=== PATIENT | female | born 1955 | race Caucasian/White ===

== ENCOUNTER 2016-09-06 07:06 | Inpatient (IN) ==
--- NOTE | 2016-09-03 14:57 | Discharge Summary ---
<Varsha Lantigua E - Last Filed: 09/03/16 14:55> Date of Encounter: 09/03/16 - Discharge Diagnosis (1) Rotator cuff arthropathy Priority: Primary Status: Chronic Qualifiers: Laterality: left Qualified Code(s): M12.812 - Other specific arthropathies , not elsewhere classified, left shoulder (2) Chronic pain Priority: Secondary Status: Chronic Qualifiers: Chronic pain type: other chronic pain Qualified Code(s): G89.29 - Other chronic pain (3) Hypertension Status: Chronic Qualifiers: Hypertension type: essential hypertension Qualified Code(s): I10 - Essential (primary) hypertension (4) Tobacco dependence Priority: Secondary Status: Acute - Discharge Medications Home Medications: Albuterol Sulfate [Proair Hfa] 2 puff IH Q4H PRN 01/02/16 [History] Amlodipine Besylate 10 mg PO DAILY 01/02/16 [History] BuPROPion SR (12 HR) [Wellbutrin SR] 150 mg PO BID 01/02/16 [History] OxyCODONE/APAP 5/325 [Percocet 5/325 MG] 1 each PO Q8HR PRN 01/02/16 [History] Pravastatin Sodium [Pravachol] 20 mg PO DAILY 01/02/16 [History] Valsartan [Diovan] 160 mg PO DAILY 01/02/16 [History] Aspirin Enteric Coated [Aspirin EC] 325 mg PO DAILY #21 tablet. 09/05/16 [Rx] OxyCODONE Immed Rel [Roxicodone 5 MG] 5 - 10 mg PO DAILY #14 tablet 09/05/16 [Rx ] Albuterol Sulfate [Albuterol Inhaler] 2 puff IH Q4HR PRN 09/06/16 [History] Amlodipine Besylate 10 mg PO DAILY 09/06/16 [History] Baclofen [Lioresal] 10 mg PO TID 09/06/16 [History] Duloxetine [Cymbalta] 40 mg PO BID 09/06/16 [History] Loratadine [Allergy Relief] 10 mg PO DAILY 09/06/16 [History] Allergies/Adverse Reactions: Allergies oxytocin [From Pitocin] Allergy (Verified 09/06/16 08:34) Swelling of Lip/Tongue/Throat sulfamethoxazole [From Septra] Allergy (Verified 09/06/16 08:34) Rash trimethoprim [From Septra] Allergy (Verified 09/06/16 08:34) Rash Primary care physician: Emeka Brandon CNP - Patient Status Disposition: Home, Self-Care Condition: Good - Discharge Instructions Follow Up With: Emeka Brandon CNP [Primary Care Provider] - - Hospital Course Hospital course: Ms. Nahid Cox is a 60 year old female - Time Spent with Patient Total time spent providing and/or coordinating discharge services: <Anali Parmar - Last Filed: 09/05/16 21:36> Date of Encounter: 09/05/16 - Discharge Diagnosis (1) Rotator cuff arthropathy Status: Chronic Comments: Percocet 5/325 TID - #90 -LD 08/16/16 - Resuming her chronic pain medication at discharge, and start Oxycodone 5mg TID in addition to her normal routine. This will be continued for 1 week post-op, then tapered down to her normal dosage. Qualifiers: Laterality: left Qualified Code(s): M12.812 - Other specific arthropathies , not elsewhere classified, left shoulder (2) Chronic pain Status: Chronic Qualifiers: Chronic pain type: other chronic pain Qualified Code(s): G89.29 - Other chronic pain (3) Hypertension Status: Chronic Qualifiers: Hypertension type: essential hypertension Qualified Code(s): I10 - Essential (primary) hypertension (4) Tobacco dependence Status: Acute Primary care physician: Emeka Brandon CNP - Hospital Course Hospital course: Ms. Nahid Cox is a 60 year old female - Time Spent with Patient Total time spent providing and/or coordinating discharge services: <Nathaniel Mallory - Last Filed: 09/07/16 06:46> Date of Encounter: 09/07/16 Time of Encounter: 06:46 - Discharge Diagnosis (1) Chronic pain Priority: Secondary Status: Chronic Qualifiers: Chronic pain type: other chronic pain Qualified Code(s): G89.29 - Other chronic pain (2) Hypertension Priority: Secondary Status: Chronic Qualifiers: Hypertension type: essential hypertension Qualified Code(s): I10 - Essential (primary) hypertension (3) Tobacco dependence Priority: Secondary Status: Acute (4) Rotator cuff arthropathy Priority: Primary Status: Chronic Qualifiers: Laterality: left Qualified Code(s): M12.812 - Other specific arthropathies , not elsewhere classified, left shoulder Primary care physician: Emeka Brandon CNP - Patient Status Functional capacity at discharge: independent ambulation Overall status at discharge: patient is back to baseline - Hospital Course Hospital course: Ms. Nahid Cox is a 60 year old female The patient had an uneventful postoperative course. They received antibiotics and physical therapy and were discharged in stable condition. There will follow -up in the office in 2 weeks. Time spent discussing smoking cessation with patient: 3 to 10 minutes - Time Spent with Patient Total time spent providing and/or coordinating discharge services:
--- NOTE | 2016-09-06 07:37 | History & Physical Report ---
Date of Encounter: 09/06/16 Time of Encounter: 07:37 24 Hour HP Update - Instructions Instructions: If the History and Physical is less than 30 days old and was completed prior to A.M. admission and or procedure and has NOT been updated on calendar day of procedure please complete this update prior to performing procedure. - Update Patient reports changes in Medical Condition: No Changes in examination, assessment, or condition: No Changes in Medication: No Preop tests/diagnostics Reviewed: Yes Surgery Remains Indicated: Yes Consent for Planned Operative Procedure(s) Verified: Yes - Pre-Operative Checklist Preoperative Checklist Indicated: No Prophylactic Antibiotic Ordered: Yes Is VTE Prophylaxis Indicated?: Yes
[2016-09-06] MEDS ORDERED: Albuterol 2.5 MG/3 ML NEBULIZER ONE (07:41)
[2016-09-06] MEDS ORDERED: Albuterol 2.5 MG/3 ML NEBULIZER IH ONE (07:45)
[2016-09-06] MEDS ORDERED: CeFAZolin Pre 2,000 MG/100 ML 2,000 MG/100 ML BAG IVPB ONE (07:45)
[2016-09-06] MEDS ORDERED: Ringers Solution, Lactated 1,000 ML IVC SCH ×3 (07:45→10:47)
[2016-09-06] MEDS ORDERED: Famotidine 20 MG/2 ML VIAL IVP ONE (08:00)
--- NOTE | 2016-09-06 08:03 | Anesthesia Evaluation PreOp ---
Date of Encounter: 09/06/16 Time of Encounter: 08:00 - Past History Planned Operation: Left Total Shoulder Replacement Cardiac History: HTN, Hyperlipidemia Pulmonary History: Smoker, COPD GUEST ATTENDANT History: Denies Any Significant HX Other Medical History: Denies Any Significant HX Anesthesia History: No Prior Anesthetic Complications : No Alcohol Use: none Drug use: none Medications and Allergies Albuterol Sulfate [Proair Hfa] 2 puff IH Q4H PRN 01/02/16 [History] Amlodipine Besylate 10 mg PO DAILY 01/02/16 [History] Biotin 5 mg PO DAILY 01/02/16 [History] BuPROPion SR (12 HR) [Wellbutrin SR] 150 mg PO BID 01/02/16 [History] Celecoxib [Celebrex] 200 mg PO BID 01/02/16 [History] Duloxetine HCl [Cymbalta] 60 mg PO BID 01/02/16 [History] Estradiol/Norethindrone Acet [Activella 0.5-0.1 mg Tablet] 1 tab PO DAILY [History] Multivitamin [One Daily Essential] 1 tab PO DAILY 01/02/16 [History] OxyCODONE/APAP 5/325 [Percocet 5/325 MG] 1 each PO Q8HR PRN 01/02/16 [History] Oxybutynin Chloride [Ditropan Xl] 5 mg PO BID 01/02/16 [History] Pravastatin Sodium [Pravachol] 20 mg PO DAILY 01/02/16 [History] Tizanidine HCl 4 mg PO Q8H PRN 01/02/16 [History] Valsartan [Diovan] 160 mg PO DAILY 01/02/16 [History] Aspirin Enteric Coated [Aspirin EC] 325 mg PO DAILY #21 tablet. 09/05/16 [Rx] OxyCODONE Immed Rel [Roxicodone 5 MG] 5 - 10 mg PO DAILY #14 tablet 09/05/16 [Rx ] Allergies oxytocin [From Pitocin] Allergy (Verified 01/02/16 09:12) Swelling of Lip/Tongue/Throat sulfamethoxazole [From Septra] Allergy (Verified 01/02/16 09:12) Rash trimethoprim [From Septra] Allergy (Verified 01/02/16 09:12) Rash - Meds/Allergy Pre-op Review Medications Reviewed: Yes Allergies Reviewed: Yes Beta Blockers on Current Med List: No Anesthesia Results - Labs Laboratory Tests 08/26/16 08/26/16 15:05 15:05 Hgb 12.3 Hct 37.7 Plt Count 477 H Sodium 140 Potassium 3.6 BUN 13 Creatinine 0.72 - Imaging EKG: report reviewed (SR) Anesthesia Exam O2 Sat Height 1.6 m Height 1.6 m Weight 73.936 kg Weight 73.936 kg O2 Sat by Pulse Oximetry 93 Vital Signs Temp Pulse Resp BP Pulse Ox 98.6 F 85 18 132/88 93 09/06/16 07:39 09/06/16 07:39 09/06/16 07:39 09/06/16 07:39 09/06/16 07:39 Height: 5'3 Weight: 163 lbs NPO (# of Hours): MN Pain Scale: 0 - HEENT Pupil (Motor): Pupils equal, EOMI Mallampati: II Denture Type: Upper: Complete Oral Opening: Greater than 3 - GUEST ATTENDANT LOC: Oriented GUEST ATTENDANT Motor: Normal RUE, Normal LUE, Normal RLE, Normal LLE, Normal Face GUEST ATTENDANT Sensory: Normal: RUE, LUE, RLE, LLE, Face - Cardiac Rhythm: Regular Murmur: None JVD: No Carotid Bruit: No - Pulmonary Breath Sounds: bilateral Clear Respiratory Effort: Symmetrical Anesthesia Assess/Plan ASA Score: 3 (HTN COPD Tobacco) Modified Wisam Scale for Level of Consciousness: Cooperative, oriented, and tranquil Anesthetic Plan: General, Regional Monitoring Plan: Standard Monitors Recovery Plan: PACU (Discussed GA and RA, agrees to proceed)
[2016-09-06] MEDS ORDERED: Dexamethasone 4 MG/ML VIAL ONE (08:27)
[2016-09-06] MEDS ORDERED: Ondansetron 4 MG/2 ML VIAL ONE (08:27)
[2016-09-06] MEDS ORDERED: *HR* FentaNYL (PF) 100 MCG/2 ML VIAL ONE (08:27)
[2016-09-06] MEDS ORDERED: Lidocaine -MPF 2% 2 ML VIAL ONE (08:27)
[2016-09-06] MEDS ORDERED: *HR* Midazolam HCl 2 MG/2 ML VIAL ONE ×2 (08:27→08:28)
[2016-09-06] MEDS ORDERED: *HR* Propofol 200 MG/20 ML VIAL IVP ONE (08:29)
[2016-09-06] MEDS ORDERED: Tetracaine/PF 20 MG/2 ML AMPUL SPINA ONE (08:46)
[2016-09-06] MEDS ORDERED: ROPIVACAINE HCL/PF 0.5% 30 ML VIAL ONE (08:46)
[2016-09-06] MEDS ORDERED: Bupivacaine/Clonidine Syringe 1 EACH SYRINGE ONE (08:47)
[2016-09-06] MEDS ORDERED: Lidocaine -MPF 4% 5 ML AMPUL ONE (09:05)
--- NOTE | 2016-09-06 09:08 | Anesthesia Procedures ---
Date of Encounter: 09/06/16 Time of Encounter: 08:50 Procedures: Anesthesia - Nerve Block Procedure Date: 09/06/16 Time: 08:50 Allergies/Adv Reactions: oxytocin, sulfamethoxazole, trimethoprim Pre-op Diagnosis: Left Shoulder rotator cuff arthropathy Surgical Procedure: Left total shoulder arthroplasty Checklist: Correct Patient Identifier, Correct procedure, History checked Correct side: Left Blood Thinner: No Monitor Applied: EKG, BP, Pulse Oximetry Supplemental Oxygen via Nasal Cannula (L/min): 2 Sedation: Versed (mg): 2 Sedation: Fentanyl (mcg): 50 Indication: Post Op Analgesia Pre-op Neuro Deficits: No Block Type: Supraclavicular Catheter placed: No Sterile Technique: Yes Ultrasound used: Yes Anatomy identified: Yes Visual spread of Local: Yes Neuro Stimulation: No Blood on Needle Aspiration: No Smooth Injection of Local: Yes Pain with Injection of Local: No Prep: Chlorhexadine Needle: 22 x 50 mm Stimuplex Local: 0.25% Bupivicaine w/Clonidine 20 mcg/cc, Ropivacaine Volume (cc): 40 Number of Attempts: 1 Complications: None/effective block Vitals: Vital Signs Temperature 98.6 F 09/06/16 07:39 Pulse Rate 85 09/06/16 07:39 Respiratory Rate 18 09/06/16 07:39 Blood Pressure 132/88 09/06/16 07:39 O2 Sat by Pulse Oximetry 93 09/06/16 07:39 Temperature 98.6 F 09/06/16 07:39 Pulse Rate 88 09/06/16 09:05 Respiratory Rate 16 09/06/16 09:05 Blood Pressure 156/88 09/06/16 09:05 O2 Sat by Pulse Oximetry 97 09/06/16 09:05 Comments: ropivicaine 0.5% 30ml supraclavicular, bupivicaine 0.25% with clonidine for SCP , ICB
[2016-09-06] MEDS ORDERED: Ondansetron 4 MG/2 ML VIAL IVP ONE (09:10)
[2016-09-06] MEDS ORDERED: *HR* Morphine 2 MG/ML SYRINGE IVP PRN (09:10)
--- NOTE | 2016-09-06 09:57 | Orthopedic Operative Note ---
Date of procedure: 09/06/16 Pre-op diagnosis: Left shoulder cuff tear arthropathy Post-op diagnosis: same Procedure: Procedure: Left Total Shoulder Replacment Reverse, Estimated blood loss: 100 cc Hardware:Arthrex small glenoid baseplate, 2 4.5 screws. 1 6.5 screw, 36 lateral glenosphere, 6 humeral stem, poly insert 3 and 6 metal Exam Under anesthesia: Full motion and no stability Procedural Notes: Extensive fibrinous material irreparable tear supraspinatus and subscapularis, grade 3 arthritic changes humeral head Operative procedure: The patient was brought to the operating room and placed on the operating room table. After general anesthesia was administered the operative shoulder was examined. Findings were noted. The patient was placed in the modified beachchair position. All pressure points were padded appropriately. And the head was stabilized in the neutral position. The operative extremity was prepped and draped in the sterile surgical fashion. The patient received IV antibiotics prior to skin incision. A standard deltopectoral approach was made to the operative shoulder. Incision was made to the skin and subcutaneous tissue,hemo stasis was obtained with Bovie cautery. Using careful blunt dissection the cephalic vein was identified and mobilized medially. The deltopectoral interval was developed and the clavipectoral fascia was incised. Patient noted to have extensive fibrinous material. Cultures and Gram stain were obtained and sent. Very low suspicion of infection. The subscap was irreparable. The humerus was dislocated patient noted to have irreparable tear supraspinatus tendon and grade 3 arthritic changes humeral head., and the humeral cut was made along the anatomic neck. Anterior and posterior Bankart retractors were placed to expose the glenoid. The glenoid guide was seated and the centering hole was made. It was reamed with the appropriate reamer. The small baseplate was seated and secured with ( 2) 4.5 screws and one 6.5 screw. The baseplate was irrigated and dried and the 36 lateral Glenosphere was seated and secured with the Carlton taper. The Carlton taper was tested and found to be secure the humerus was redislocated and prepared with the diaphyseal reamers, followed by a broaching process up to the appropriate size 6 in the patient's anatomic version. The metaphyseal reamer was then utilized. Trial reduction found the shoulder to be relocatable. Trial components were removed and the size 6 stem was impacted in place in the patient's anatomic version. Trial reduction found the shoulder to be relocatable and stable with the appropriate 6 metal and 3 Marilu Trial component was removed and the real implants was seated and secured the shoulder was reduced. The shoulder had excellent motion and excellent stability and no evidence of dislocation. The deep tissue was irrigated with pulse irrigation. The deltopectoral interval was closed with a running #1 PDS suture, subcutaneous tissue was irrigated and closed with 0 PDS suture, the skin was closed with Dermabond. The patient was placed in a sterile dressing, abduction brace and extubated. The patient was then transferred to the recovery room in stable condition. Anesthesia: [place] Surgeon: Nathaniel Mallory Informatics Application Analyst: Anali Parmar Condition: stable Disposition: PACU
--- NOTE | 2016-09-06 10:45 | Anesthesia Evaluation Post Op ---
Date of Encounter: 09/06/16 Time of Encounter: 10:40 - Vital Signs Vital Signs: Vital Signs/O2 Sat/Glucose, Most Current Temp Pulse Resp BP Pulse Ox 09/06/16 10:35 83 17 147/83 95 09/06/16 10:25 86 16 140/88 98 09/06/16 10:15 97.1 F L 92 15 165/83 95 09/06/16 09:05 88 16 156/88 97 09/06/16 08:44 84 16 148/87 94 09/06/16 07:39 98.6 F 85 18 132/88 93 - Lungs Lungs: Clear Ascult./Percussion - Airway Airway: Non-obstructed - Cardiovascular Regular Rate - Mental Status Mental Status: Alert & Oriented, Answers Appropriately - Pain Pain Scale: 0 - Nausea Vomiting Nausea Vomiting: Not Present - Hydration Hydration: Ice chips - Discharge PostOp Status: Transfer Patient to floor
[2016-09-06] MEDS ORDERED: *HR* OxyCODONE Immed Rel 5 MG TABLET PO PRN (10:47)
[2016-09-06] MEDS ORDERED: Naloxone 0.4 MG/ML INJ IVP PRN (10:47)
[2016-09-06] MEDS ORDERED: *HR* HYDROmorphone (PF) 1 MG/ML SYRINGE IVP PRN (10:47)
[2016-09-06] MEDS ORDERED: MOM Conc 10 ML UD.LIQ PO PRN (10:47)
[2016-09-06] MEDS ORDERED: Sennosides 8.6 MG TABLET PO PRN (10:47)
[2016-09-06] MEDS ORDERED: Ondansetron 4 MG/2 ML VIAL IVP PRN (10:47)
[2016-09-06] MEDS ORDERED: Temazepam 15 MG CAPSULE PO PRN (10:47)
[2016-09-06] MEDS ORDERED: Acetaminophen 325 MG TABLET PO PRN (10:47)
[2016-09-06 11:12] LABS: Hemoglobin 10.8 g/dL (11.5-15.4)
[2016-09-06] MEDS: *HR* OxyCODONE Immed Rel 5 MG TABLET PO PRN ×2 (14:38→21:51)
[2016-09-06] MEDS: Baclofen 10 MG TABLET PO SCH ×2 (14:38→21:41)
[2016-09-06] MEDS: ceFAZolin 2,000 MG in D5% in Water 100 ML IVPB SCH ×2 (16:47→23:40)
[2016-09-06] MEDS: *HR* Enoxaparin 30 MG/0.3 ML SYRINGE SQ SCH (16:48)
[2016-09-06] MEDS ORDERED: *HR* Enoxaparin 30 MG/0.3 ML SYRINGE SQ SCH (18:00)
[2016-09-06] MEDS: BuPROPion SR (12 HR) 150 MG TABLET PO SCH (21:42)
[2016-09-07] MEDS: *HR* OxyCODONE Immed Rel 5 MG TABLET PO PRN (02:29)
[2016-09-07] MEDS: *HR* Enoxaparin 30 MG/0.3 ML SYRINGE SQ SCH (05:17)
[2016-09-07 06:31] VITALS: BP 183/94
[2016-09-07 06:42] LABS: Hematocrit 33.7 % (35.3-44.9); Hemoglobin 11.1 g/dL (11.5-15.4)
--- NOTE | 2016-09-07 06:47 | Orthopedics Progress Note ---
Date of Encounter: 09/07/16 Time of Encounter: 06:46 - Assessment and Plan (1) Chronic pain Current Visit: Yes Status: Chronic Qualifiers: Chronic pain type: other chronic pain Qualified Code(s): G89.29 - Other chronic pain (2) Hypertension Current Visit: Yes Status: Chronic Qualifiers: Hypertension type: essential hypertension Qualified Code(s): I10 - Essential (primary) hypertension (3) Tobacco dependence Current Visit: Yes Status: Acute (4) Rotator cuff arthropathy Current Visit: Yes Status: Chronic Qualifiers: Laterality: left Qualified Code(s): M12.812 - Other specific arthropathies , not elsewhere classified, left shoulder Subjective Interval history: Patient was seen this morning doing well without complaints. Afebrile vital signs stable. Operative extremity: Neurovascularly intact Dressing clean dry and intact Calves nontender Assessment and plan: Continue with postoperative care Discharged today Objective Vital signs: Vital Signs Temp Pulse Resp BP Pulse Ox 09/07/16 06:29 98.1 F 91 16 183/94 93 09/07/16 04:48 98.8 F 96 17 172/98 93 09/06/16 23:56 165/90 09/06/16 23:08 99.2 F 100 21 185/98 95 09/06/16 22:02 93 09/06/16 20:03 98.8 F 94 18 153/79 93 09/06/16 13:37 99 F 83 18 125/74 93 09/06/16 11:55 98.3 F 85 18 132/71 95 09/06/16 11:25 97.9 F 87 16 121/77 94 09/06/16 11:00 98.0 F 82 14 135/78 93 09/06/16 10:45 98.7 F 87 18 139/84 97 09/06/16 10:35 83 17 147/83 95 09/06/16 10:25 86 16 140/88 98 09/06/16 10:15 97.1 F L 92 15 165/83 95 09/06/16 09:05 88 16 156/88 97 09/06/16 08:44 84 16 148/87 94 09/06/16 07:39 98.6 F 85 18 132/88 93 Intake and Output 09/06/16 09/06/16 09/07/16 15:59 23:59 07:59 Intake Total 1100 / 1100 300 / 300 1000 / 1000 Output Total 300 / 300 300 / 300 Balance 800 / 800 0 / 0 1000 / 1000 Intake: IV Fluids 1100 / 1100 100 / 100 1000 / 1000 Lactated Ringers 1,000 ML 1000 / 1000 1000 / 1000 @ 75 mls/hr IVC .[id number] [facility] Rx#:[id number] Ancef 2,000 MG In 100 / 100 Dextrose 5% 100 ML @ 200 mls/hr IVPB Q8HR [facility] Rx#: [id number] Ancef Premix 2,000 MG/100 100 / 100 ML 2,000 mg In 100 ml @ 200 mls/hr IVPB PREOP ONE Rx#:[id number] Oral 200 / 200 Output: Urine 300 / 300 300 / 300 Other: # Voids 2 1 2 Weight 73.936 kg - Labs CBC & BMP: 09/07/16 06:00 Labs: Abnormal lab results Hgb 11.1 g/dL (11.5-15.4) L 09/07/16 06:00 Hct 33.7 % (35.3-44.9) L 09/07/16 06:00 - VTE Documentation of Mechanical Device: Venous foot pump, device Consult Discharge Plan - Plan Referrals: Emeka Brandon, [facility]OR[facility] DYER [Primary Care Provider] -
[2016-09-07] MEDS ORDERED: Valsartan 160 MG TABLET PO SCH (09:00)
[2016-09-07] MEDS ORDERED: NON-FORMULARY MEDICATION 1 EACH EACH (Amlodipine Besylate [Amlodipine Besylate] 10 MG) PO SCH (09:00)
[2016-09-07] MEDS ORDERED: amLODIPine 5 MG TABLET PO SCH (09:00)
[2016-09-07] MEDS ORDERED: Loratadine 10 MG TABLET PO SCH (09:00)
[2016-09-07] MEDS: Baclofen 10 MG TABLET PO SCH (09:14)
[2016-09-07] MEDS: BuPROPion SR (12 HR) 150 MG TABLET PO SCH (09:14)
== END 2016-09-07 11:05 | disposition home or self-care (01) | DRG 483 ==
LOC: SAMDAY 07:06 → 3NENU 10:43
PROVIDERS: ADMIT Orthopaedic Surgery; ATTEND Orthopaedic Surgery